=== PATIENT | male | born 1955 | race African-American/Black ===

== ENCOUNTER 2017-10-31 11:29 | Emergency (ER) | payer MEDICARE, MEDICAID ==
[~2017-10-31] VITALS: Ht 175.3 cm; Wt 116.0 kg
[2017-10-31] MEDS ORDERED: TRAM50TA3 PO (11:44)
[2017-10-31] MEDS ORDERED: LISI10TA5 PO (11:44)
[2017-10-31] MEDS ORDERED: IBUPROFEN 600MG TABLET PO ONE (13:00)
[2017-10-31 13:15] VITALS: BP 144/86
== END 2017-10-31 13:29 | disposition home or self-care (01) ==
LOC: ER 12:19
DX: R51 Headache (principal)
CPT/HCPCS: 99282